=== PATIENT | female | born 1985 | race Hispanic/Latino ===

== ENCOUNTER → 2018-08-08 | Day surgery (SDC) | payer OTHER ==
[2018-07-30 12:20] LABS: BASOPHILS % 0.2 % (0.0-1.0); EOSINOPHILS # (AUTO) 0.1 (0.0-0.4); EOSINOPHILS % 0.6 % (0.0-6.0); HEMATOCRIT 35.2 % (34.2-44.1); HEMOGLOBIN 11.6 g/dL (12.0-16.0); LYMPHOCYTES % 20.8 % (18.0-39.1); MEAN CORPUSCULAR HEMOGLOBIN 28.7 pg (28-32); MEAN CORPUSCULAR VOLUME 87.1 fL (81-99); MONOCYTES # (AUTO) 0.6 (0.2-0.8); MONOCYTES % 6.1 % (4.4-11.3); PLATELET COUNT 295 x10e3/uL (140-360); RED BLOOD COUNT 4.04 x10e6/uL (3.6-5.1); RED CELL DISTRIBUTION WIDTH 11.9 % (11.7-14.4)
[~2018-08-08] MED LIST: ACETAMINOPHEN 1000 MG/100 ML IV ONE; BIRTH CONTROL PILL; BUPIVACAINE 0.25%/EPI 30ML SDV INJ ONE; DEXAMETHASONE SOD PHOS INJ 4 MG/ML VIAL ONE; FENTANYL CITRATE/PF 100MCG/2 ML INJ ONE; GLYCOPYRROLATE INJ 1MG/ 5 ML SYR ONE; HYDROMORPHONE 2MG/ML 2 MG/ML ML ONE; LIDOCAINE HCL 2% LOCAL INJ 5 ML SDV VIAL INJ ONE; MEPERIDINE HCL INJ 25 MG/ML VIAL ONE; METOCLOPRAMIDE HCL 10 MG/2ML VIAL ONE; MIDAZOLAM HCL 2 MG/2 ML VIAL ONE; NEOSTIGMINE 5 MG/5ML SYR ONE; ONDANSETRON HCL INJ 2MG/ML 2ML 2 MG/ML VIAL ONE; PROPOFOL IV EMULSION 10 MG/ML 20 ML VIAL ONE; ROCURONIUM BROMIDE 10 MG/ML 5ML VIAL ONE; SEVOFLURANE INHAL SOLN 250 ML PEN BTL ONE
--- NOTE | 2018-08-08 07:16 | NUR ---
SPIRITUAL CARE - Pre-Surgery Assessment: Pt in bed. Pt's at bedside. Pt reported supportive attention from family and friends. Intervention: I provided pastoral presence, hospitality, and sympathetic listening. I acquainted pt with availability of call center recruiter while hospitalized. Outcome: Pt expressed appreciation for visit. No need for follow up indicated at this time. ROSALIO [facility]lain Spiritual Care Department O: [phone] Pager: [phone] ([phone] number calling from)
[2018-08-08 11:40] VITALS: BP 111/72
--- NOTE | 2018-08-08 15:32 | Operative Report ---
DATE OF PROCEDURE: August 08, 2018 PREOPERATIVE DIAGNOSIS: Ovarian mass. POSTOPERATIVE DIAGNOSIS: Ovarian mass. OPERATION PERFORMED: Right ovarian cystectomy for a dermoid cyst. COMPLICATIONS: None. ESTIMATED BLOOD LOSS: 60 mL. DESCRIPTION OF PROCEDURE: The patient was taken to the OR, and general anesthesia was achieved. She was prepped and draped in the normal sterile fashion. She was placed in the dorsal lithotomy position. After examination under anesthesia, a HUMI self-retaining uterine manipulator was passed through the cervix into the uterine cavity, and the balloon was inflated. Following this, 2 Allis clamps were applied to the umbilicus. An infraumbilical skin incision was made with a scalpel, and a 10-mm bladeless trocar and cannula with a scope inside were passed through the abdominal wall into the abdominal cavity. The trocar was removed, and the scope was slid through the sleeve into the abdominal cavity. The abdomen was inflated with carbon dioxide gas. The patient was placed in Trendelenburg position. Two other ports were made in the right side of the abdomen, after making 5-mm skin incisions with a scalpel. A 5-mm bladeless trocar and cannula were passed through the abdominal wall into the abdominal cavity under direct visualization. Following this, the following findings: Normal uterus. Normal-looking right ovary and tube. The left ovary showed 6 to 7 cm dermoid cyst. The LigaSure was advanced. The capsule of the cyst at the junction of the ovarian tissue was opened. During that time, spilling of the dermoid cyst contents occurred. The incision inside the ovarian cyst was enlarged, and suction irrigation of the ovarian cyst was performed with 365web[employer] cyst suction irrigation system. Following this, the completion of the ovarian cystectomy was performed from the right ovary. Suction irrigation was performed with warm saline. Following this, hemostasis was found to be adequate. A 5-mm scope was passed through the peripheral port. Endo Catch was passed through the umbilicus and opened, and the specimen was passed to the Endo Catch and brought out after enlarging the rectus fascia incision at the umbilicus. At that stage, it was noted that the peritoneal surface of the umbilical incision had venous bleeding. Accordingly, using the LigaSure, the peritoneum at the umbilicus incision was held and cauterized several times to achieve hemostasis at the umbilical incision. Following this, the abdomen was deflated. The rectus fascia at the umbilicus was held with Allis clamps. The rectus fascia was approximated using Vicryl 0 sutures. The abdomen was reinflated. Looking with the scope at the umbilicus, it showed no more bleeding. Suction irrigation was performed again. Adhesions between the omentum and the anterior abdominal wall were removed using the LigaSure. Good visualization was always maintained. Instruments were removed from the abdomen. Abdominal gas was deflated again, and no bleeding was noted. The camera was removed. Skin was closed at the umbilicus using Vicryl 3-0 stitch and Dermabond at the sites of the skin. The patient tolerated the procedure well. Lap, instrument and needle counts were correct x2 at the end of the procedure. Job#: [id number]
== END | disposition home or self-care (01) ==
LOC: OR 06:06
PROVIDERS: ATTEND Obstetrics & Gynecology
DX: D27.0 Benign neoplasm of right ovary (principal); K66.0 Peritoneal adhesions (postprocedural) (postinfection); Z01.812 Encounter for preprocedural laboratory examination
CPT/HCPCS: 36415; 58662; 81025; 84702; 85025; 88305; J0131; J1100; J1170; J2001; J2175; J2250; J2405; J2704; J2765; J3490